=== PATIENT | male | born 1980 | race American Indian/Alaskan Native ===

== ENCOUNTER 2020-02-22 21:27 | Emergency (ER) | payer OTHER, MEDICARE, MEDICAID ==
[2020-02-22 21:47] VITALS: BP 134/85
--- NOTE | 2020-02-22 22:28 | XRay Report ---
LEFT SHOULDER 3 VIEWS INDICATION / CLINICAL INFORMATION: right shoulder pain COMPARISON: None available. FINDINGS: BONES / JOINT(S): No acute fracture or subluxation. No significant arthritis. SOFT TISSUES: No significant abnormality. ADDITIONAL FINDINGS: None. Signer Name: Yvon Larson MD Signed: 02/22/2020 10:23 PM Workstation Name: [id number]
--- NOTE | 2020-02-22 22:29 | XRay Report ---
LUMBAR SPINE 2 VIEWS INDICATION / CLINICAL INFORMATION: lower back pain COMPARISON: None available. FINDINGS: BONES / JOINT(S): No acute fracture or subluxation. No significant arthritis. SOFT TISSUES: No significant abnormality. ADDITIONAL FINDINGS: None. Signer Name: Yvon Larson MD Signed: 02/22/2020 10:24 PM Workstation Name: [id number]
== END 2020-02-23 01:30 | disposition left against medical advice (07) ==
LOC: ED 21:27
DX: M54.5 Low back pain (principal); M25.511 Pain in right shoulder; Z53.21 Procedure and treatment not carried out due to patient leaving prior to being seen by health care provider
CPT/HCPCS: 72100